=== PATIENT | female | born 1985 | race Caucasian/White ===

== ENCOUNTER 2025-01-16 12:54 | Emergency (ER) | payer OTHER ==
[2025-01-16 13:21] LABS: BASOPHILS ABSOLUTE AUTO 0.0 x10-3/uL (0.0-0.1); BASOPHILS PERCENT AUTO 0.2 % (0.2-1.5); EOSINOPHILS ABSOLUTE AUTO 0.1 x10-3/uL (0.0-0.8); EOSINOPHILS PERCENT AUTO 1.3 % (0.6-8.1); LYMPHOCYTES ABSOLUTE AUTO 2.7 x10-3/uL (1.0-4.4); LYMPHOCYTES PERCENT AUTO 30.4 % (18.4-52.1); MEAN PLATELET VOLUME 8.4 fL (7.1-12.4); MONOCYTES ABSOLUTE AUTO 0.8 x10-3/uL (0.3-1.0); MONOCYTES PERCENT AUTO 8.5 % (4.4-15.7); NEUTROPHILS ABSOLUTE AUTO 5.3 x10-3/uL (1.5-6.3); NEUTROPHILS PERCENT AUTO 59.6 % (30.8-76.2); PLATELET COUNT,PLT 253 x10(3)uL (151-488); RED BLOOD CELL COUNT 5.11 x10(6)uL (3.60-5.20); RED CELL DISTRIBUTION WIDTH 13.8 % (12.3-16.5); WHITE BLOOD CELL COUNT,WBC 8.8 x10-3/uL (3.0-10.3)
[2025-01-16 13:23] LABS: BLOOD UREA NITROGEN,BUN 10 mg/dL (7-18); CARBON DIOXIDE,CO2 27 mmol/L (21-32); CREATININE 0.7 mg/dL (0.55-1.02); EST CRCL DRUG DOSING (CG) 90.14 mL/min; ESTIMATED GFR 113 mL/min (>60); GLUCOSE RANDOM 96 mg/dL (80-116)
[2025-01-16 13:29] LABS: A/G RATIO 1.1; ALANINE AMINOTRANSFERASE,ALT 28 U/L (12-36); ASPARTATE AMNIOTRANSFERASE,AST 43 IU/L (5-25); BILIRUBIN TOTAL 0.6 mg/dL (0.1-1.3); PROTEIN TOTAL,TP 8.4 g/dL (6.0-8.0)
[2025-01-16 13:30] LABS: INR 0.93 (1.00-1.24); PTT,PARTIAL THROMBOPLSTIN TIME 23.4 SECONDS (24.4-33.2)
[2025-01-16 13:45] LABS: CHLORIDE,CL 103 mmol/L (100-110); POTASSIUM,K 4.3 mmol/L (3.5-5.3); SODIUM,NA 138 mmol/L (135-145)
[2025-01-16] MEDS: Alum Hydroxide/Mag Hydroxide 15 ML, Lidocaine 2% 15 ML PO ONE (14:01)
== END 2025-01-16 14:18 | disposition home or self-care (01) ==
LOC: FB.ED 12:54
DX: M54.10 Radiculopathy, site unspecified (principal); K21.9 Gastro-esophageal reflux disease without esophagitis; Z90.710 Acquired absence of both cervix and uterus
CPT/HCPCS: 36415; 70450; 71045; 72125; 80053; 84484; 85025; 85610; 85730; 93005; 99284; A9270-GY